=== PATIENT | female | born 1930 | race Caucasian/White ===

== ENCOUNTER 2016-08-13 11:00 | Outpatient (CLI) | payer OTHER, BC ==
--- NOTE | 2016-08-13 11:44 | DIAGNOSTIC IMAGING REPORT ---
PROCEDURE: DEXA BONE DENSITY STUDY CLINICAL INDICATION: PRIMARY HYPERPARATHYRODISM;HYPERCALCEMIA COMPARISON: DEXA 10/25/2008 FINDINGS: LUMBAR SPINE: Bone mineral density 0.803 g/cm2, T score -2.2 osteopenia which represents a 6.3% improvement from the previous study LEFT HIP: Bone mineral density 0.645 g/cm2, T score -2.4 osteopenia which represents a 14.5% decrease from the previous study LEFT FEMORAL NECK: Bone mineral density 0.564 g/cm2, T score -2.6 osteoporosis which represents a 14.4% decrease from the previous study FRACTURE RISK CALCULATION ( when applicable): 10-year fracture risk of a major osteoporotic fracture and of a hip fracture not reported because some T-score at or below -2.5 (T score greater or equal to -1.0 to: NORMAL) (T score from -1.1 to -2.4: OSTEOPENIA) (T score ess than or equal to -2.5: OSTEOPOROSIS) IMPRESSION: 1. Osteopenia lumbar spine and hip, osteoporosis left femoral neck. 2. 14.4% decrease in bone mineral density in hip and femoral neck since the previous study.
== END 2016-08-13 23:00 ==
LOC: XR SRH 11:00
DX: M85.89 Other specified disorders of bone density and structure, multiple sites (principal)